=== PATIENT | male | born 1985 ===

== ENCOUNTER 2024-01-17 18:29 | Emergency (ER) | payer SELFPAY ==
--- NOTE | ~2024-01-17 | CT_ITS ---
CT HEAD WITHOUT IV CONTRAST CT CERVICAL SPINE WITHOUT IV CONTRAST CT MAXILLOFACIAL WITHOUT IV CONTRAST INDICATION: Trauma. COMPARISON: None TECHNIQUE: Multidetector CT acquisitions of the head, maxillofacial region, and cervical spine were obtained without IV contrast. Multiplanar reformats were acquired and utilized for image interpretation. DLP: 685 mGy-cm FINDINGS: HEAD: There is no intracranial hemorrhage or extra-axial fluid collection. The ventricles are unremarkable without hydrocephalus. No midline shift or mass effect. Hernández to white matter differentiation is diffusely maintained without evidence of an evolved acute territorial infarct. The basilar cisterns are preserved. Subcortical and periventricular white matter hypoattenuation is suggestive of [] small vessel ischemic disease. No soft tissue or osseous abnormality. The mastoid air cells and paranasal sinuses are well-aerated. MAXILLOFACIAL: The mandible, maxilla, pterygoid plates, nasal bones, zygomatic arches, paranasal sinus villagomez, and bony orbits are intact. No acute osseous abnormality within the maxillofacial region. The paranasal sinuses and mastoid air cells remain well-aerated. The globes and extra-ocular musculature is intact. No significant soft tissue findings. CERVICAL SPINE: Reversal of normal cervical lordosis. Otherwise there is anatomic alignment of the vertebral bodies and posterior elements. There is no acute fracture and there is no acute subluxation. The craniocervical and atlantoaxial articulations are normal. There is no prevertebral soft tissue swelling. No significant soft tissue abnormality within the neck. The visualized lung apices are clear. CT/CT head/brain wo IV con IMPRESSION: 1. No acute intracranial abnormality. 2. No acute osseous abnormality within the cervical spine. 3. No acute osseous abnormality within the maxillofacial region.
--- NOTE | ~2024-01-17 | XR_ITS ---
EXAMINATION: XR ELBOW, LEFT CLINICAL INFORMATION: Pain status post fall COMPARISON: None available. TECHNIQUE: AP, lateral, and oblique views of the left elbow. FINDINGS: The bones and soft tissues are normal. No fracture or joint effusion. Alignment is anatomic. Joint spaces are maintained. XR/XR elbow LT min 3V IMPRESSION: Normal left elbow.
--- NOTE | ~2024-01-17 | CT_ITS ---
CT HEAD WITHOUT IV CONTRAST CT CERVICAL SPINE WITHOUT IV CONTRAST CT MAXILLOFACIAL WITHOUT IV CONTRAST INDICATION: Trauma. COMPARISON: None TECHNIQUE: Multidetector CT acquisitions of the head, maxillofacial region, and cervical spine were obtained without IV contrast. Multiplanar reformats were acquired and utilized for image interpretation. DLP: 685 mGy-cm FINDINGS: HEAD: There is no intracranial hemorrhage or extra-axial fluid collection. The ventricles are unremarkable without hydrocephalus. No midline shift or mass effect. Hernández to white matter differentiation is diffusely maintained without evidence of an evolved acute territorial infarct. The basilar cisterns are preserved. Subcortical and periventricular white matter hypoattenuation is suggestive of [] small vessel ischemic disease. No soft tissue or osseous abnormality. The mastoid air cells and paranasal sinuses are well-aerated. MAXILLOFACIAL: The mandible, maxilla, pterygoid plates, nasal bones, zygomatic arches, paranasal sinus villagomez, and bony orbits are intact. No acute osseous abnormality within the maxillofacial region. The paranasal sinuses and mastoid air cells remain well-aerated. The globes and extra-ocular musculature is intact. No significant soft tissue findings. CERVICAL SPINE: Reversal of normal cervical lordosis. Otherwise there is anatomic alignment of the vertebral bodies and posterior elements. There is no acute fracture and there is no acute subluxation. The craniocervical and atlantoaxial articulations are normal. There is no prevertebral soft tissue swelling. No significant soft tissue abnormality within the neck. The visualized lung apices are clear. CT/CT cervical spine wo IV con IMPRESSION: 1. No acute intracranial abnormality. 2. No acute osseous abnormality within the cervical spine. 3. No acute osseous abnormality within the maxillofacial region.
--- NOTE | ~2024-01-17 | CT_ITS ---
CT HEAD WITHOUT IV CONTRAST CT CERVICAL SPINE WITHOUT IV CONTRAST CT MAXILLOFACIAL WITHOUT IV CONTRAST INDICATION: Trauma. COMPARISON: None TECHNIQUE: Multidetector CT acquisitions of the head, maxillofacial region, and cervical spine were obtained without IV contrast. Multiplanar reformats were acquired and utilized for image interpretation. DLP: 685 mGy-cm FINDINGS: HEAD: There is no intracranial hemorrhage or extra-axial fluid collection. The ventricles are unremarkable without hydrocephalus. No midline shift or mass effect. Hernández to white matter differentiation is diffusely maintained without evidence of an evolved acute territorial infarct. The basilar cisterns are preserved. Subcortical and periventricular white matter hypoattenuation is suggestive of [] small vessel ischemic disease. No soft tissue or osseous abnormality. The mastoid air cells and paranasal sinuses are well-aerated. MAXILLOFACIAL: The mandible, maxilla, pterygoid plates, nasal bones, zygomatic arches, paranasal sinus villagomez, and bony orbits are intact. No acute osseous abnormality within the maxillofacial region. The paranasal sinuses and mastoid air cells remain well-aerated. The globes and extra-ocular musculature is intact. No significant soft tissue findings. CERVICAL SPINE: Reversal of normal cervical lordosis. Otherwise there is anatomic alignment of the vertebral bodies and posterior elements. There is no acute fracture and there is no acute subluxation. The craniocervical and atlantoaxial articulations are normal. There is no prevertebral soft tissue swelling. No significant soft tissue abnormality within the neck. The visualized lung apices are clear. CT/CT facial bones wo IV con IMPRESSION: 1. No acute intracranial abnormality. 2. No acute osseous abnormality within the cervical spine. 3. No acute osseous abnormality within the maxillofacial region.
[2024-01-17 18:41] VITALS: BP 179/95; PULSE 68; RESP 16; TEMP 37.4; O2SAT 100; BMI 46.5
--- NOTE | 2024-01-17 18:48 | ED.GENADULT ---
HPI - General Adult General Chief complaint: Wound/Laceration Stated complaint: fell right eye laceration Related Data Allergies Allergy/AdvReac Type Severity Reaction Status Date / Time No Known Allergies Allergy Verified 01/17/24 18:45 [facility] Social History Social History Advance Directives: No Advance Directives Information Provided: No Physical Exam ED Vital Signs: Vital Signs - 24 hr 01/17/24 18:41 Temperature 99.3 F Pulse Rate 68 Respiratory Rate 16 Blood Pressure 179/95 H Pulse Oximetry 100 Oxygen Delivery Method Room Air BMI result Body Mass Index 46.5 Course Course Course Narrative: This is an RME: Additional HPI, ROS, PE not included below will be deferred to primary provider. RME assessment and note performed by: Bailey Parkinson PA-C This is a 38-year-old male, with a hx of noninsulin dependent diabetes on metformin, who presents emergency department with complaints of right eyebrow laceration and right-sided facial pain status post mechanical fall. Patient reports that he slipped and fell forward and struck his right side of his head on the shower. Not on blood thinners. Patient appears tired, he is neurologically intact. Plan: CT head, neck, POC glucose Reevaluation(s) Reevaluation #1: Patient left without completing treatment. Medical Decision Making Lab Data Labs: Lab Results 01/17/24 Range/Units 18:50 POC Glucose 158 H (60-115) mg/dL Discharge Plan Discharge Clinical Impression: Fall Patient Disposition: Left W/O Completing Treatment Discharge Date/Time: 01/18/24 02:44
[2024-01-17 18:54] LABS: Glucose, Whole Blood 158 mg/dL (60-115)
== END 2024-01-18 02:44 | disposition left against medical advice (07) ==
PROVIDERS: Emergency Provider Emergency Medicine
DX: S01.111A Laceration without foreign body of right eyelid and periocular area, initial encounter (principal); E11.9 Type 2 diabetes mellitus without complications; Z79.84 Long term (current) use of oral hypoglycemic drugs; W18.2XXA Fall in (into) shower or empty bathtub, initial encounter; Y93.E1 Activity, personal bathing and showering; Y92.9 Unspecified place or not applicable; Y99.9 Unspecified external cause status
CPT/HCPCS: 70450; 70486; 72125; 73080; 82947; 99281; 99284